=== PATIENT | female | born 1950 | race Caucasian/White ===

== ENCOUNTER → 2016-06-22 | Outpatient (CLI) | payer BC ==
[2016-06-23 08:10] LABS: IMMUNOGLOBULIN A 141 mg/dL (87-352)
[2016-06-24 09:22] LABS: GLIADIN IGG AB 2 units (0-19)
== END | disposition home or self-care (01) ==
LOC: PAN 14:11
DX: R10.9 Unspecified abdominal pain (principal); R14.0 Abdominal distension (gaseous)
CPT/HCPCS: 82784; 83516; 83520; 86255